=== PATIENT | female | born 1950 | race Caucasian/White ===

== ENCOUNTER 2017-02-09 10:08 | Observation (INO) | payer OTHER ==
[2017-02-09] VITALS (11 sets, daily range): BP systolic 117–141; BP diastolic 59–81; PULSE 59–74; RESP 11–20; O2SAT 96–99
[~2017-02-09] VITALS: Ht 172.7 cm; Wt 82.1 kg
--- NOTE | 2017-02-09 10:06 | ED.REPORT ---
HPI-Neurologic Deficit Date of Service Feb 09, 2017 ED Provider: Dr. Yury Duarte MD A 66 year old female with a history of recent ischemic colitis (2 weeks ago), hypertension, and ADD presents to the ED via EMS following a syncopal episode with stoke like symptoms that occurred at 0940 this morning. The patient presented after a 5 minute episode of unresponsiveness followed by significant slurred speech and inability to ambulate. The patient reported generalized weakness and dizziness just prior to symptom onset. She had been sitting for approx. 40 minutes prior to symptom onset. EMS endorse slurred speech in the field that is gradually improving upon arrival to the ED. Last known normal was approx. 2 hours prior to arrival. Code stroke was initiated prior to arrival in the ED. The patient has had resolving diarrhea and hematochezia for the past two weeks since her colitis diagnosis. Her reports that the patient had a similar syncopal episode 2 weeks ago following her colitis Current medication list includes Adderall, Lisinopril, Citalopram and recent antibiotics. Nursing Notes Stated Complaint: CODE STROKE Nursing Notes Reviewed: Yes Allergies: Coded Allergies: No Known Allergies (Unverified , 02/09/17) General Time Seen by Provider: 10:06 Chief Complaint Slurred speech Hx Obtained From: Patient, Spouse, EMS Arrived By: Ambulance Sudden in Onset?: Yes Onset Occurred: Just prior to arrival Symptom Duration: Since onset Progression Since Onset: Unchanged Associated with: Reports: Diarrhea, Nausea, Weakness Pertinent Negative: Pt denies other symptoms Recent Healthcare: Recent doctor visit, Recent hospitalization Risk Factors TPA Administration/Criteria Stroke Thrombolytic Therapy : TPA Administered Intravenously: No, exclusion criteria (Recent ischemic colitis and GI bleed and rapidly resolving symptoms) NIH Stroke Scale Level of Consciousness: Alert and responsive (0) Ask Month & Age: Both questions right (0) Open/Close Eyes/Hand Waist Pleater: Performs both tasks (0) Horizontal EO Movements: None (0) Visual Taylor: No visual loss (0) Facial Palsy: Normal symmetry (0) Right Arm Motor Drift (10s): No drift 10 sec (0) Left Arm Motor Drift (10s): No drift 10 sec (0) Right Leg Motor Drift (5s): No drift 5 sec (0) Left Leg Motor Drift (5s): No drift 5 sec (0) Limb Ataxia FNF/Heel-Zarate: No ataxia (0) Sensation (Arms/Legs/Face): No sensory loss (0) Language Aphasia: No aphasia, normal (0) Dysarthria: No dysarthria, normal (0) Extinction/Inattention: No exctinct/inattent (0) NIHSS Score: 0 Time NIHSS Performed: 10:21 Past Medical History Past Medical History Ischemic colitis ADD Hypertension Past Surgical History Hysterectomy Cataract surgery Smoking History Unknown if Ever Smoker Social History Other Social History: Good social support, , Local resident Ambulatory Status Independent Review of Systems GI: Reports: Diarrhea, Hematochezia (Improving), Denies: Bloody/tarry stool Neurologic: Reports: Change LOC, Dizziness, Problem walking, Slurred speech, Syncope Complete sys rev & neg: except as marked. Physical Exam Initial Vital Signs Vital Signs (First) Date Time Temp Pulse Resp B/P Pulse Ox O2 Delivery O2 Flow Rate FiO2 02/09/17 10:08 74 20 117/62 98 Room Air 02/09/17 11:41 36.5 BP:90/70 HR: 88 Initial VS: Reviewed Neck: Supple, Non-tender, Full range of motion Extremities: Vascular intact, Neuro intact, No swelling, No tenderness Skin: Warm, Dry, No cyanosis Psychiatric: Mood/affect normal, Behavior normal, Normal thought content General/Constitutional: Awake, Alert Head / Eyes: Atraumatic, Normocephalic, PERRL Respiratory / Chest: Atraumatic, Breath sounds NL, Breath sounds = bilat, No respiratory distress Cardiovascular: Heart rate NL, Regular rhythm, Heart sounds NL Neurologic: Oriented X3 See NIH Stroke Scale in Risk Abdomen: Atraumatic, Soft Interpretation & Diagnostics Lab Results Interpretation Result Diagram: 02/09/17 1005 02/09/17 1005 Test 02/09/17 10:05 White Blood Count 9.1th/mm3 (3.8-10.1) Red Blood Count 4.57mil/mm3 (3.90-5.20) Hemoglobin 13.7g/dL (12.0-15.6) Hematocrit 40.7% (35.0-46.0) Mean Corpuscular Volume 89.1fL (81-100) Mean Corpuscular Hemoglobin 30.0pg (27.0-35.0) Mean Corpuscular Hemoglobin Concent 33.7% (32.0-37.0) Red Cell Distribution Width 14.2% (12.3-15.4) Platelet Count 401bil/L (150-400) Neutrophils (%) (Auto) 67.2% (40-74) Lymphocytes (%) (Auto) 25.3% (14-46) Monocytes (%) (Auto) 5.8% (4-12) Eosinophils (%) (Auto) 1.1% (0-5) Basophils (%) (Auto) 0.4% (0-3) Prothrombin Time 10.8sec (8.1-12.5) Prothromb Time International Ratio 1.01ratio Activated Partial Thromboplast Time 23.6sec (22.8-33.0) Sodium Level 140mEq/L (134-144) Potassium Level 3.9mEq/L (3.5-5.2) Chloride Level 103mEq/L (97-108) Carbon Dioxide Level 20mmol/L (18-29) Blood Urea Nitrogen 12mg/dL (8-27) Creatinine 1.01mg/dL (0.57-1.00) Estimat Glomerular Filtration Rate 79mL/min (>59) Glucose Level 133mg/dL (60-99) Calcium Level 9.5mg/dL (8.5-10.1) Total Bilirubin 0.2mg/dL (0.0-1.2) Aspartate Amino Transf (AST/SGOT) 19U/L (0-50) Alanine Aminotransferase (ALT/SGPT) 18U/L (0-32) Alkaline Phosphatase 82U/L (25-165) Troponin T < 0.010ug/L (0.0-0.011) Total Protein 7.1g/dL (6.4-8.4) Albumin 4.0g/dL (3.4-5.0) ECG Interpretation ECG Interpretation: Sinus rhythm Rate 64 bpm probable left atrial enlargement probably left ventrixcular hypettrophy Time: 10:40 Interpreted by: ED physician X-Ray Chest Interpretation Chest Xray Interpretation: IMPRESSION: No acute cardiopulmonary disease. Dictated by: Musa Beatty M.D. on 02/09/2017 at 10:50 Interpretation / Wet Read by: Interpret - Radiologist CT Head Interpretation IMPRESSION: No acute intracranial abnormalities. Findings were discussed with Dr. Aguilar at 1029 hrs on February 09, 2017. This study fulfills neurological imaging criteria for inclusion or exclusion of acute stroke therapies based on available published neurological imaging guidelines. Dictated by: Musa Beatty M.D. on 02/09/2017 at 10:29 Study: Head CT no contrast Interpretation / Wet Read by: Interpret - Radiologist, Discussed w radiologist Re-Eval/Medical Decision Med Decision/Clinical Course Patient care was initiated prior to arrival as emergency medical personnel notified us of a high risk patient coming in with possible stroke. Based on last known normal the patient was a potential TPA candidate, however given her recent GI bleeding, rapidly resolving symptoms, and an NIH stroke scale of 0, TPA was not given. We will plan to admit the patient for further diagnostic evaluation. Re-Evaluation/Progress #1: Time of Eval: 10:28 Re-Evaluation/Progress Note: Speech is improving upon recheck. Re-Evaluation/Progress #2: Time of Eval: 11:24 Patient Status: Condition improved Re-Evaluation/Progress Note: Orthostatic vitals are negative. Symptoms continue to improve. She is informed of the plan to give Aspirin and admit to the hospital for further work-up. Re-Evaluation/Progress #3: Time of Eval: 11:36 Patient Status: Condition improved Re-Evaluation/Progress Note: Code status is discussed in front of the patient's . Requested status is undecided at this time. All of the patient's questions about her likely diagnosis and disposition are addressed. She understands and agrees with the plan. Consultation : Referral / Consult Name: Tobin Vela MD Consulted With: Hospitalist Call Returned at: 12:11 Barber Tool Sharpener: Will see patient, Agrees with eval, Agrees with plan, Accepts admit Differential Diagnosis: Positive: Cerebrovascular accident, Electrolyte disorder, Epidural hemorrhage, Hypoglycemia, Intracranial hemorrhage, Mass lesion, Personality disorder, Subarachnoid hemorrhage, Subdural hemorrhage, Transient ischemic attack Counseled Regarding: Diagnosis, Lab results, Need for admission Discharge & Departure Impression: Primary Impression: Syncope Syncope type: unspecified Qualified Code: R55 - Syncope and collapse Additional Impression: Transient ischemic attack (TIA) Transient cerebral ischemia type: unspecified Qualified Code: G45.9 - Transient cerebral ischemic attack, unspecified Disposition: ADMITTED TO HOSPITAL Discharge Condition All VS Reviewed: Yes Condition: Improved Crit Care Except Billable Proc Time Spent: 30-74 minutes Services Performed: Patient management by me, Time spent at bedside, Reviewing test results, Reviewing imaging, Discussing patient care, Documentation in record, Time with fam/surrogate Critical Care Notes: See MDM Scribe Attestation Portions of this note were transcribed by Mehdi Guadalupe. I, Dr. Yury Duarte personally performed the history, physical exam and medical decision- making; I reviewed and confirmed the accuracy of the information in the transcribed note. Yury Aguilar DO Feb 09, 2017 10:05 MEHDI GUADALUPE Feb 09, 2017 10:16
[2017-02-09] MEDS ORDERED: 0.9% Sodium Chloride 1,000 ML IV ONE (10:11)
[2017-02-09 10:30] LABS: BASOPHILS % (AUTO) 0.4 % (0-3); EOSINOPHILS % (AUTO) 1.1 % (0-5); MONOCYTES % (AUTO) 5.8 % (4-12); Mean Corpuscular Volume 89.1 fL (81-100); NEUTROPHILS % (AUTO) 67.2 % (40-74); Platelet Count 401 bil/L (150-400)
--- NOTE | 2017-02-09 10:32 | DRSVH ---
PROCEDURE: CT BRAIN TPA INDICATIONS: 66 year-old female with stroke symptoms. TECHNIQUE: Noncontrast 4.5 mm thick angled axial sections acquired from the foramen magnum to the vertex, with c oronal reformats. COMPARISON: None. FINDINGS: Image quality: Excellent. CSF spaces: Basal cisterns are patent. No extra-axial fluid collections. Ventricles are normal in size and shape. Brain: No midline shift. No intracranial masses or hemorrhage. Concepcion-white matter interface is norm al. There is patchy intracranial internal carotid artery atherosclerosis. Skull and face: Calvarium and visualized facial bones are intact, without suspicious lesions. Sinuses: Visualized sinuses and mastoids are clear. IMPRESSION: No acute intracranial abnormalities. Findings were discussed with Dr. Aguilar at 1029 hrs on February 09, 2017. This study fulfills neurological imaging criteria for inclusion or exclusion of acute stroke therapie s based on available published neurological imaging guidelines. Dictated by: Musa Beatty M.D. on 02/09/2017 at 10:29 Approved by: Musa Beatty M.D. on 02/09/2017 at 10:31
[2017-02-09 10:48] LABS: INR 1.01 ratio
--- NOTE | 2017-02-09 10:52 | DRSVH ---
PROCEDURE: X-RAY CHEST ONE VIEW, PORTABLE ([id number]) INDICATIONS: 66 year-old female with syncope versus stroke. TECHNIQUE: One view of the chest was acquired. COMPARISON: None. FINDINGS: Surgical changes and devices: None. Lungs and pleura: No pleural effusions or pneumothorax. Lungs are clear. Mediastinum: Mediastinal contours appear normal. Heart size is normal. Bones and chest wall: No suspicious bony lesions. Overlying soft tissues appear unremarkable. IMPRESSION: No acute cardiopulmonary disease. Dictated by: Musa Beatty M.D. on 02/09/2017 at 10:50 Approved by: Musa Beatty M.D. on 02/09/2017 at 10:50
[2017-02-09 11:11] LABS: TROPONIN T < 0.010 ug/L (0.0-0.011)
[2017-02-09] MEDS ORDERED: Alum-Mag Hydrox-Simeth 30 mL Suspension PO PRN ×2 (12:15→12:30)
[2017-02-09] MEDS ORDERED: Ondansetron 2 mg/mL 2 mL Inj IVPUSH PRN ×2 (12:15→12:30)
[2017-02-09] MEDS ORDERED: Labetalol 5 mg/mL 20 mL Inj IVPUSH PRN (12:30)
[2017-02-09] MEDS ORDERED: Polyethylene Glycol (PEG) 17 Gm Powder PO PRN (12:30)
--- NOTE | 2017-02-09 13:16 | NUR ---
Admit Patient arrived to floor approx 1230 with spouse at bedside. Oriented to room and hospital policies. Tele placed. Patient will be a SBA due to weakness with ambulation. Does not use devices with ambulation prior to admit. Patient stutters frequently during conversation which is not baseline. feels speech is worsening which this RN agrees with. notified and at bedside. MRI ordered stat. Denies weakness in extremities. Sensation intact in all extremities, no facial drooping or tongue deviation. Continue frequent monitoring. Addendum: 02/09/17 at 1323 by BJ HOPSON RN Med rec not completed. Spouse knows medications yet does not know doses. Fax sent to [facility] requesting med list.
--- NOTE | 2017-02-09 13:36 | NUR ---
stutter pt's stutter has significantly gotten worse since being on [facility]. STAT MRI and CT have been ordered. pt stable otherwise.
--- NOTE | 2017-02-09 14:05 | NUR ---
off floor pt is off the unit for a STAT MRI.
--- NOTE | 2017-02-09 14:32 | PCM.HPMED ---
Subjective Date of Service Feb 09, 2017 Primary Provider: Admitting Physician: Primary Care Physician: Attending Physician: Chief Complaint: Syncope and altered speech patterns History of Present Illness: Ms. Angeline Arzate is a 66 year old lady with a history of recent ischemic colitis ( 2 weeks ago), hypertension, and ADD, and depression who presents to the ED via EMS following a syncopal episode with stoke like symptoms that occurred at 0940 this morning. Angeline reports feeling lightheaded just before her syncopal episode but doesn't recall anything until arriving to the ED. Her reports patient slouched over in the methodist pew, was cold and clammy and unresponsive for several minutes. She also had an episode of large volume watery diarrhea. After regaining consciousness her and EMS reports generalized weakness and marked aphasia (broca's), that resolved en-route. She reports lightheadedness and "feeling funny", and watery diarrhea. She denies headache, vision change, Aura prior to syncope, fever, chills, nausea, vomiting , chest pain, shortness of breath, abdominal pain, constipation, hematochezia, hematuria, dysuria, limb weakness/numbness/tingling. Of note: This is the 2nd syncopal episode in 2 weeks. The first occurred while on the toilet and was told is was a vagal syncope. She has a 2 week history of diarrhea. It began as syncope and hematochezia 2 weeks ago. She was worked up in a hospital in [place], with a negative CT abdomen and resolution of syncope she was sent home (awaiting hospital records). She had a colonoscopy in [place] 1 week ago and was diagnosed ischemic colitis. She reports continued bouts of watery diarrhea daily. During the interview patient displayed worsening Broca's aphasia. Current medication list includes Adderall, Lisinopril, Citalopram and 2 recent antibiotics. Social: Patient has good social support. No ambulatory dysfunction. DNR/DNI. In the ED patients vitals were: T 36.5. HR - 66, RR - 12, BP - 122/64, 98 % RA. Labs within normal limits. EKG reviewed - NSR 64BPM, No st depressions/elevations, Non specific t wave inversions. CT head - No acute intracranial abnormalities. In the ED patient received Aspirin, and 1 L NS. TPA not indicated due to recent ischemic colitis, NIH 0 to 1. MR stroke protocol ordered. Echo complete ordered. Dr. Lim with neurology consulted. Review of Systems: A comprehensive review of systems was conducted with the patient and found to be negative except as above in the History of Present Illness. Allergies Coded Allergies: No Known Allergies (Unverified , 02/09/17) Home Medications Lisinopril Citalopram Adderall 2 antibiotics... Tylenol PMH Ischemic colitis ADD Hypertension Surgical History Hysterectomy Cataract surgery Family History Father CHF mother healthy Son Colon cancer. Social History Hx Alcohol Use: No Hx Substance Use: No Hx Tobacco Use: No Smoking Status: Never Smoker Living Arrangement: with Family Exam Vital Signs Vital Sign - Last Date Time Temp Pulse Resp B/P Pulse Ox O2 Delivery O2 Flow Rate FiO2 02/09/17 11:41 36.5 65 12 118/77 99 Room Air Exam General: Late middle aged lady lying in bed in no acute distress, well-developed , well-nourished, appropriately interactive HEENT: Normocephalic, atraumatic. External ears without defect. Pupils equal, round, and reactive to light and accommodation. Anicteric sclerae, moist conjunctivae, and no lid lag. Oropharynx free of erythema and cobble stoning with moist mucosa. Neck: Supple with full range of motion. No jugular venous distension. No bruits. No lymphadenopathy or thyromegaly. Cardiovascular: Regular rate and rhythm with no murmurs, rubs, or gallops appreciated Pulmonary: Clear to auscultation bilaterally with no crackles, wheezes, or rhonchi. Normal respiratory effort with no use of accessory muscles. Abdomen: Bowel tones present. Soft, nontender, nondistended. No hepatosplenomegaly or masses appreciated. Extremities: No clubbing, cyanosis, edema, or lymphadenopathy appreciated. Skin: Normal temperature, turgor, and texture; no rash, ulcers, or subcutaneous nodules appreciated. Neurological: Cranial nerves grossly intact. Normal muscle strength, tone, and bulk. Reflexes, coordination, and sensory function within normal limits. No known gait impairment. Patient displayed marked Broca's aphasia nearly every other word. This is a change from arrival to ED. Psychiatric: Normal mood and affect. Alert and oriented to person, place, and time. Lab and Diagnostics Result Diagram: 02/09/17 1005 02/09/17 1005 X-Rays, CTs and MRIs CT BRAIN TPA IMPRESSION: No acute intracranial abnormalities. Findings were discussed with Dr. Aguilar at 1029 hrs on February 09, 2017. This study fulfills neurological imaging criteria for inclusion or exclusion of acute stroke therapies based on available published neurological imaging guidelines. Approved by: Musa Beatty M.D. on 02/09/2017 at 10:31 12-lead ECG EKG reviewed - NSR at 64 BPM, normal axis, no ST elevations/depressions, T wave inversions in Leads V1, V2 Assessment & Plan Ms. Angeline Arzate is a 66 year old lady with a history of recent ischemic colitis and syncope (both 2 weeks ago), hypertension, and ADD, and depression who presents to the ED via EMS following a syncopal episode with stoke like symptoms that occurred at 0940 this morning. She has worsening Broca's aphasia. Stroke protocol ordered, and Neurology consulted. Acute CVA, likely TIA , Present on Admission, Active. TPA not indicated due to recent ischemic colitis, NIH 0 to 1. - Received Statin and ASA in the ED. Will continue. - NIH in ED was 0 to 1. - Lipid panel/HA1c ordered. - PT/Speech eval ordered. - EKG reviewed - wnl - CT head - No acute intracranial abnormalities. - Stat MR stroke protocol ordered. - Echo complete ordered. - Dr. Lim with neurology consulted. - Standard Stroke protocol ordered. Acute Syncopal Episode, Present on Admission, Stable. - EKG reviewed - NSR at 64 bpm, no arrhythmia seen, no ST changes. - Labs all normal. - On Tele. - ECHO ordered. (no prior study available) - Orthostatics blood pressures. - IV fluids NS @ 75 ml/hr. - Awaiting outpatient records from PCP and previous hospital stay in . Recent history of Ischemic colitis, watery diarrhea, present on admission. Active. - Continue IV fluids. - Awaiting recent inpatient records. - Stool guaiac ordered. - C. diff pcr ordered. - If continues will CT abdomen mesenteric angiogram. Chronic Conditions: Hypertension - Holding home Lisinopril till appropriate. Depression - Continue home Citalopram ADD - Continue home Adderall Social: Patient has good social support. No ambulatory dysfunction. DNR/DNI. In the ED patient received Aspirin. Acetaminophen for mild pain when necessary. Bowel regimen Senna and MiraLAX scheduled and PRN. Zofran when necessary for nausea and vomiting. SubQ heparin for now. SCDs in place. High-risk medications: NONE. Patient Status: Patient is admitted under observation status with expected length of stay less than 2 midnights due to severity of presenting symptoms. Pain Evaluation: Adequate Pain Control VTE Prophylaxis: Sub-Q Heparin (Unfractionated) Resuscitation Status: DNR/DNI:Do Not Resuscitate/Intubate Stoke tPA Contraindication tPA arrival Contraindications: Medical contraindication Attending Statement Patient seen and examined with resident. Agree with the management as outlined above. LIDYA MOCK DO Feb 09, 2017 12:34 Tobin Vela MD Feb 09, 2017 22:04
[2017-02-09] MEDS: 0.9% Sodium Chloride 1,000 ML IV SCH (14:52)
--- NOTE | 2017-02-09 15:10 | DRSVH ---
PROCEDURE: MRI STROKE PROTOCOL ([id number]) Pre- and post-contrast brain MRI, non-contrast brain MR angiogram, pre- and postcontrast neck MR alley ogram INDICATIONS: CVA, slurred speech. TECHNIQUE: Brain: Noncontrast axial T1 spin echo, axial T2 fast spin echo, sagittal and axial FLAIR, coronal T2 fast spin echo, axial gradient echo, axial diffusion and ADC through the brain. After the administr ation of contrast, axial 3D VIBE of the cranial vasculature and brain. Brain MRA: Non-contrast 3-D time of flight MR angiogram, with multiple nmafnzi-qdivugycu-rxeerhqrnr (MIP) reformats performed. Neck MRA: Axial and sagittal TruFISP through the neck. Coronal dynamic MR angiogram during administ ration of contrast in the arterial and venous phases, with 3-dimenstional yvaqsko-ajscgmqju-ovbgrlgvz n (MIP) reformats constructed from subtraction images. COMPARISON: [facility], CT, CT BRAIN TPA, 02/09/2017, 10:22. FINDINGS: Image quality: Excellent. BRAIN: CSF spaces: There is mild cerebral volume loss with prominence of the ventricles and sulci. Basal ci sterns are patent. No extra-axial fluid collections. Brain: Diffusion-weighted images demonstrate no acute infarcts. No intracranial hemorrhage, mass, o r mass effect. Concepcion-white matter interface is preserved. There are subcortical and periventricular foci of white matter T2 hyperintensity consistent with mild chronic small vessel ischemic changes. B rainstem appears normal. Normal intravascular flow voids are present. No abnormal intracranial enha ncement. Skull and face: Calvarial marrow signal is normal. Orbits appear normal. Sinuses: Sinuses and mastoids are clear. BRAIN MR ANGIOGRAM: Anterior circulation: Intracranial internal carotid arteries are patent bilaterally. The flow withi n the paired anterior cerebral arteries is patent bilaterally. The flow within the middle cerebral a rteries is patent bilaterally. The anterior communicating artery is visualized. No high-grade steno ses, occlusions, or aneurysms. Posterior circulation: The visualized portions of the vertebral arteries appear patent and join to f orm a patent basilar artery. There is a diminutive distal segment of the left vertebral artery which may represent an anatomic variant or high grade segmental stenosis. The flow within the posterior c erebral arteries is patent bilaterally. No occlusions or aneurysms. NECK MR ANGIOGRAM: Carotids: Great vessels demonstrate conventional anatomy as they arise from the aortic arch. The or igins of the common carotid arteries appear patent. The calibers and courses of both common carotid arteries are normal. The bifurcation regions appear widely patent. The internal carotid arteries de monstrate normal course and caliber. Posterior circulation: The origins of the vertebral arteries appear patent. More superior portions of both vertebral arteries are patent and join to form a normal appearing basilar artery. There is a diminutive appearance of the distal segment of the left vertebral artery. Miscellaneous: Subclavian arteries appear patent. Pre-contrast images through the neck show no soft tissue abnormalities. IMPRESSION: BRAIN MRI: 1. No evidence of infarct or other acute intracranial abnormality. 2. Mild cerebral volume loss and chronic white matter small vessel ischemic changes. BRAIN MR ANGIOGRAM: 1. No high-grade stenosis or occlusion of the [place] vessels. 2. Diminutive appearance of the distal left vertebral artery which likely represents an anatomic henri iant due to a dominant right vertebrobasilar system versus segmental stenosis. NECK MR ANGIOGRAM: 1. Carotid bulbs are widely patent. No high-grade stenosis or occlusion of the anterior circulation . 2. Diminutive distal segment of the left vertebral artery likely represents an anatomic variant seco ndary to a dominant right vertebrobasilar system. However, a segmental stenosis cannot be fully excl uded and if clinically indicated further evaluation may be obtained with CT angiogram. The estimate of stenosis included in the report of the imaging study was calculated using the NASCET method Dictated by: Bam Pimentel M.D. on 02/09/2017 at 15:09 Approved by: Bam Pimentel M.D. on 02/09/2017 at 15:09
--- NOTE | 2017-02-09 16:42 | NUR ---
feeling normal pt states that she feels "normal" again and also points out that her stuttering was gone. pt and suspect the combination of the ischemic colitis and lower BP caused the current situation.
[2017-02-09] MEDS: Heparin 5,000 Unit/mL Inj SUBQ SCH (17:08)
[2017-02-10] VITALS (10 sets, daily range): BP systolic 118–164; BP diastolic 69–84; PULSE 56–80; RESP 18; O2SAT 94–98
[2017-02-10] MEDS: Heparin 5,000 Unit/mL Inj SUBQ SCH ×3 (00:50→16:53)
--- NOTE | 2017-02-10 01:18 | NUR ---
Code Status: This RN questioned patients code status of DNR/I, pt told RN that when she arrived to the ED and was having difficulty in speaking, she told the MD she did not want CPR, stating she did not ever want to be spoon fed and/or unable to speak. Now that her speech has improved, she would like to be full code. RN talked to patient about appointing someone to make her decisions if she were ever not able to make them herself and to make out a living will. Patient stated she would speak to her 2nd son about becoming her medical power of banking attorney. This RN to notify MD of patients wish to change code status.
--- NOTE | 2017-02-10 01:31 | PCM.PNMED ---
Subjective Date of Service Feb 10, 2017 Subjective Patient expressed wish to be FULL CODE Tiburcio Herrmann MD Feb 10, 2017 01:31
[2017-02-10] MEDS: 0.9% Sodium Chloride 1,000 ML IV SCH ×2 (04:29→16:13)
[2017-02-10 05:41] LABS: BASOPHILS % (AUTO) 0.4 % (0-3); EOSINOPHILS % (AUTO) 1.6 % (0-5); MONOCYTES % (AUTO) 6.6 % (4-12); Mean Corpuscular Hemoglobin 29.7 pg (27.0-35.0); Mean Corpuscular Volume 89.9 fL (81-100); NEUTROPHILS % (AUTO) 63.6 % (40-74); Platelet Count 307 bil/L (150-400)
[2017-02-10 06:07] LABS: ERYTHROCYTE SEDIMENTATION RATE 22 mm/hr (0-40)
--- NOTE | 2017-02-10 06:22 | NUR ---
Stutter/NOC Shift: During initial assessment, this RN spent about 40 minutes with pt, during this time, pt had three mild episodes of stuttering her words. Pt AOx3 during this time and aware of what she was doing. Pt denied any other neuro symptoms, denied pain, chest pain and SOB. Pt slept off/on throughout the night, pleasant and cooperative with care.
[2017-02-10] MEDS ORDERED: HYDR12.5 PO (07:56)
[2017-02-10] MEDS ORDERED: AMPH30CA PO (07:56)
[2017-02-10] MEDS ORDERED: LISI10TA PO (07:56)
[2017-02-10] MEDS ORDERED: ESCI20TA38 PO (07:56)
[2017-02-10] MEDS ORDERED: METR500T19 PO (09:04)
[2017-02-10] MEDS ORDERED: CIPR-198 PO (09:04)
--- NOTE | 2017-02-10 09:07 | PCM.PNMED ---
Subjective Date of Service Feb 10, 2017 Subjective Patient said her speech is better, however still stutters. No weakness. Vitals stable. Exam Vital Signs Vital Sign - Last Date Time Temp Pulse Resp B/P Pulse Ox O2 Delivery O2 Flow Rate FiO2 02/10/17 08:51 61 02/10/17 04:57 138/81 02/10/17 04:55 36.5 18 95 Room Air Intake and Output 02/09/17 02/09/17 02/10/17 Cumulative From/Thru 15:00 23:00 07:00 02/09/17 10:08 - 02/10/17 06:41 Intake Total 1000 ml 322 ml 1111 ml 2433 ml Output Total 1075 ml 1075 ml Balance 1000 ml 322 ml 36 ml 1358 ml Intake Oral 250 ml 250 ml IV Total 1000 ml 322 ml 861 ml 2183 ml Output Urine Total 1075 ml 1075 ml Exam General: Late middle aged lady lying in bed in no acute distress, well-developed , well-nourished, appropriately interactive HEENT: Normocephalic, atraumatic. External ears without defect. Pupils equal, round, and reactive to light and accommodation. Anicteric sclerae, moist conjunctivae, and no lid lag. Oropharynx free of erythema and cobble stoning with moist mucosa. Neck: Supple with full range of motion. No jugular venous distension. No bruits. No lymphadenopathy or thyromegaly. Cardiovascular: Regular rate and rhythm with no murmurs, rubs, or gallops appreciated Pulmonary: Clear to auscultation bilaterally with no crackles, wheezes, or rhonchi. Normal respiratory effort with no use of accessory muscles. Abdomen: Bowel tones present. Soft, nontender, nondistended. No hepatosplenomegaly or masses appreciated. Extremities: No clubbing, cyanosis, edema, or lymphadenopathy appreciated. Skin: Normal temperature, turgor, and texture; no rash, ulcers, or subcutaneous nodules appreciated. Neurological: Cranial nerves grossly intact. Normal muscle strength, tone, and bulk. Reflexes, coordination, and sensory function within normal limits. No known gait impairment. Patient displayed marked Broca's aphasia nearly every other word. This is a change from arrival to ED. Psychiatric: Normal mood and affect. Alert and oriented to person, place, and time. Lab and Diagnostics Result Diagram: 02/10/1751602/10/17 0517 X-Rays, CTs and MRIs CT BRAIN TPA IMPRESSION: No acute intracranial abnormalities. Findings were discussed with Dr. Aguilar at 1029 hrs on February 09, 2017. This study fulfills neurological imaging criteria for inclusion or exclusion of acute stroke therapies based on available published neurological imaging guidelines. Approved by: Musa Beatty M.D. on 02/09/2017 at 10:31 12-lead ECG EKG reviewed - NSR at 64 BPM, normal axis, no ST elevations/depressions, T wave inversions in Leads V1, V2 Assessment & Plan Ms. Angeline Arzate is a 66 year old lady with a history of recent ischemic colitis and syncope (both 2 weeks ago), hypertension, and ADD, and depression who presents to the ED via EMS following a syncopal episode with stoke like symptoms that occurred at 0940 this morning. She has worsening Broca's aphasia. Stroke protocol ordered, and Neurology consulted. Aphasia (broca's) , Present on Admission, Resolving - TPA not indicated due to recent ischemic colitis, NIH 0 to 1. - other differentials include focal seizure - NIH in ED was 0 to 1. - CT, MRI, MRA without any acute pathologies - Lipid panel normal - PT/Speech eval ordered. - EKG reviewed - wnl - CT head - No acute intracranial abnormalities. - Echo complete ordered. - EEG ordered, will get b12, folate levels - Dr. Lim with neurology consulted. - Standard Stroke protocol ordered. Acute Syncopal Episode, Present on Admission, Stable. - EKG reviewed - NSR at 64 bpm, no arrhythmia seen, no ST changes. - Labs all normal. - On Tele. - ECHO ordered. (no prior study available) - Orthostatics blood pressures. - IV fluids NS @ 75 ml/hr. - Awaiting outpatient records from PCP and previous hospital stay in . Recent history of Ischemic colitis, watery diarrhea, present on admission. Resolving - Continue IV fluids. - no abdominal pain - monitor Chronic Conditions: Hypertension - restart home meds Depression - Continue home Citalopram ADD - Continue home Adderall Social: Patient has good social support. No ambulatory dysfunction. DNR/DNI. In the ED patient received Aspirin. Acetaminophen for mild pain when necessary. Bowel regimen Senna and MiraLAX scheduled and PRN. Zofran when necessary for nausea and vomiting. SubQ heparin for now. SCDs in place. High-risk medications: NONE. Patient Status: Patient is admitted under observation status with expected length of stay less than 2 midnights due to severity of presenting symptoms. VTE Prophylaxis: Sub-Q Heparin (Unfractionated) VTE Mechanical Devices: Venous Foot Pump Resuscitation Status: DNR/DNI:Do Not Resuscitate/Intubate Time spent 35 mins Tobin Vela MD Feb 10, 2017 09:06
--- NOTE | 2017-02-10 10:44 | DRSVH ---
[facility] [address] [place] [address] Echocardiogram Report Name: BEL ISIDRO Study Date: 02/10/2017 Height: 68 in Hospital Exam Location: [facility] Weight: 180 lb Gender: Female BSA: 2.0 m2 : 1950 Age: 66 yrs BP: 138/81 mmHg Reason For Study: SYNCOPE Ordering Physician: Performed By: Katey Armstrong Referring Physician: LIDYA MOCK Interpretation Summary The left ventricular ejection fraction is normal. There is no significant valvular heart disease. Procedure: A two-dimensional transthoracic echocardiogram with color flow and Doppler was performed. The study quality was technically adequate. There is no prior echocardiogram noted for this patient. The patient was in normal sinus rhythm during the exam. Left Ventricle: The left ventricle is normal in size, wall thickness, and systolic function without any focal wall motion abnormalities. The left ventricular ejection fraction is normal. The ejection fraction is estimated to be 60-65%. There are no focal wall motion abnormalities. Assessment of diastolic parameters indicates normal left ventricular diastolic function and normal filling pressures. Right Ventricle: The right ventricle is normal in size, thickness and function. Atria: The left atrium is moderately dilated. Right atrial size is normal. There is no Doppler evidence for an interatrial shunt. Mitral Valve: The mitral valve leaflets appear borderline thickened, but open well. The mitral valve leaflets appear to open well. There is trace mitral regurgitation. Aortic Valve: The aortic valve is not well visualized. The aortic valve is trileaflet. The aortic valve opens well. No aortic regurgitation is present. Tricuspid Valve: The tricuspid valve is normal. There is trace tricuspid regurgitation. The right ventricular systolic pressure is estimated at least 21 mmHg assuming a right atrial pressure of 3 mm Hg. Pulmonic Valve: The pulmonic valve leaflets are thin and pliable; valve motion is normal. There is mild pulmonic regurgitation. Great Vessels: The aortic root is normal size. The ascending aorta is mildly enlarged. The aortic arch is normal in size. The pulmonary artery is not well visualized, but is probably normal size. The IVC is of normal diameter and collapses greater than 50% with a sniff. This suggests a low right atrial pressure of 3 mm Hg. Pericardium/ Pleura There is no pericardial effusion. There is no pleural effusion. MMode/2D Measurements & Calculations LVIDd: 4.2 cm RA long axis LVOT diam: 2.1 cm LVIDs: 2.5 cm LA A2 area: 23.5 cm Ao root diam FS: 40.9 % LA A4 area: 25.1 cm RA area EPSS: 0.35 cm LA length (vol) asc Aorta Diam IVSd: 0.92 cm : 15.6 cm LVPWd: 0.95 cm LA vol: 83.5 ml RA vol Ao Arch Diam (Prox LA vol index : 43.2 ml Trans): 2.9 cm RA : 22.1 mm2 IVC diam: 1.9 cm LV monterroso. diameter/BSA LV sys. diameter/BSA RVD1 (basal) RVD2 (mid): 2.5 cm (cm/m^2): 2.2 (cm/m^2): 1.3 TAPSE: 2.7 cm Doppler Measurements & Calculations Ao V2 max MV E max klaus MV E/A: 1.3 TR max klaus : 136.9 cm/sec : 82.6 cm/sec Med Peak E' Klaus : 214.2 cm/sec Ao max PG MV A max klaus TR max PG : 7.5 mmHg : 63.8 cm/sec E/E' med: 9.2 : 18.3 mmHg Ao mean PG MV P1/2t: 61.9 msec Lat Peak E' Klaus PA V2 max : 77.3 cm/sec LVOT Max Klaus E/E' lat: 7.5 PA mean PG : 116.2 cm/sec E/e' average: 8.4 PA Accel Time CHAD(I,D): 3.4 cm : 0.14 sec sev ratio MV dec time MV P1/2t max klaus Ao V2 mean LV V1 max PG : 0.21 sec : 90.8 cm/sec MVA(P1/2t): 3.6 cm2 Ao V2 VTI: 31.1 cm LV V1 VTI CHAD(V,D): 3.0 cm2 : 29.8 cm PA V2 mean CHAD indexed to BSA : 50.5 cm/sec (cm^2/m^2): 1.7 Electronically signed by: Meliton Hogan on Reading Physician:02/10/2017 10:43 AM
--- NOTE | 2017-02-10 11:54 | NUR ---
Evaluation completed. Please go to "Notes" then click on "Assessments and Notes" (bottom left corner of screen). Then select appropriate discipline tab on top of screen.
--- NOTE | 2017-02-10 17:13 | NUR ---
Social Work-attempted initial assessment: Data:EMR Reviewed. Pt is a 66 y/o female who was admitted on 02/09/17 for syncope per H&P. Pt's insurance is [employer] and PCP is Other. EMR Reviewed. Pt's readmission score is 1. SW attempted to see pt today to complete assessment, but pt have EEG at beside. SW to follow up with assessment tomorrow. SW will continue to follow. Assessment:pt who is independent at baseline. Plan:SW to follow up with pt tomorrow and complete assessment. PT has cleared pt for home no needs. Pt having EEG today. SW will continue to follow. KARO Andersen
--- NOTE | 2017-02-10 20:03 | NUR ---
pain/activity/eeg/work paperwork assumed care of patient at 1500. patient denies pain all shift. up with one person assist and standby in room. eeg completed. patient requests form for work to be filled out per MD. form in chart and note on front of chart for MD to fill out form in the AM. passed this on to noc rn additionally. patient denies dizziness when up. report given to oncoming rn at 1900.
[2017-02-11 00:08] VITALS: BP 118/69; PULSE 61; RESP 18; O2SAT 96
--- NOTE | 2017-02-11 01:17 | CONS ---
[address] [address] CONSULTATION REPORT PATIENT: BEL ISIDRO : 1950 MR#: [id number] ADMIT: 02/09/2017 JOB ID: [id number] DATE OF SERVICE: 02/10/2017 REQUESTING PROVIDER: Bebeto Smith DO. Thank you again Dr. Smith for allowing me to participate in the care of your patient. CHIEF COMPLAINT: Two episodes of loss of consciousness. HISTORY OF PRESENT ILLNESS: The patient is a very pleasant 66-year-old right-handed woman with multiple medical problems, including a recent diagnosis of ischemic colitis two weeks ago, as well as a history of hypertension, attention deficit disorder and depression, who experienced an episode of lightheadedness followed by loss of consciousness with staring which lasted for approximately 5-7 minutes, witnessed by her . She slouched over in the tenriism pew, was cold, clammy and unresponsive. Following this, she felt nauseous and had large volume watery diarrhea. After regaining consciousness, she had generalized weakness and was noted to have stuttering. This resolved en route. She denied any headaches, visual changes or any aura prior to the episode, and no recent symptoms suggestive of any infectious etiology such as fevers, chills, nausea or vomiting. Unfortunately, this was the second episode in two weeks. The first occurred when she was in [place]. At that time, she was told that it was secondary to ischemic colitis and she has noted ever since then that she has had continued bouts of watery diarrhea daily. She was noted on today's examination to have intermittent stuttering that worsened during periods when she appeared to be more anxious. MEDICATIONS: Include: 1. Aspirin 81 mg. 2. Atorvastatin 40 mg. 3. Lexapro 20 mg. 4. Heparin 5000 units subcutaneously q.8 h. 5. Lisinopril 10 mg. 6. Melatonin 10 mg. 7. P.r.n. ondansetron, polyethylene glycol and senna. SOCIAL HISTORY: She lives with her . 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 No tobacco, alcohol, or drugs. REVIEW OF SYSTEMS: A complete review of systems was performed and was remarkable for above-noted. She did not receive tPA due to the recent ischemic colitis. Her NIH Stroke Scale was 0-1. She did receive aspirin in the emergency department and 1 L normal saline ALLERGIES: No known drug allergies. HOME MEDICATIONS: 1. Lisinopril. 2. Citalopram. 3. Adderall. 4. Two antibiotics, the names of which she cannot recall. 5. Tylenol. PAST MEDICAL HISTORY: 1. Ischemic colitis, recently diagnosed. 2. Attention deficit disorder. 3. Hypertension. 4. Depression. PAST SURGICAL HISTORY: 1. Status post hysterectomy. 2. Status post cataract surgery. FAMILY HISTORY: No neurologic disorders. LABORATORIES: When she initially came in, WBC 9.1, hemoglobin 13.7, hematocrit 40.7, and platelets of 401. Sodium 140, potassium 3.9, chloride was 103, bicarb was 20, BUN was 12, creatinine was 1.01, and glucose was 133. IMAGING STUDIES: She had a chest x-ray which demonstrated no acute cardiopulmonary disease. She had a CT of the brain which demonstrated no acute intracranial abnormalities. Then, she had an MRI of the brain which I reviewed in detail. This demonstrated no evidence of infarct or other acute intracranial abnormality. Mild cerebral volume loss and chronic white matter small vessel ischemic changes were noted. No high-grade stenosis or occlusion of hug[place] of Salas vessels was noted. Diminutive appearance of the distal left vertebral artery which likely represents an anatomic variant due to a dominant right vertebral basilar system versus segmental stenosis was noted. In light of this, recommendation was made for a CT angiogram. Carotid bulbs were widely patent with no high-grade stenosis or occlusion of the anterior circulation. PHYSICAL EXAMINATION: Temperature 36.6, pulse of 65, respiratory rate of 18, blood pressure 153/8, pulse oximetry 97% on room air. General: She is a well-developed, well-nourished woman, in no acute distress. Head: Normocephalic, atraumatic. Neck is supple. No carotid bruits were auscultated. Negative Kernig. Negative Brudzinski. Chest: Clear to auscultation. Heart: Regular rate and rhythm. Abdomen: Soft, nondistended, nontender. Extremities: No cyanosis, clubbing, or edema. Neurologic examination: Mental status: She is awake, alert, oriented x3. Speech clear and fluent with intact comprehension. There was intermittent episodes of stuttering noted but no clear speech arrest and no associated neurologic symptoms. No aphasia. Cranial nerves: Pupils equal, round, reactive to light. Extraocular movements were smooth and conjugate with no evidence of nystagmus. Face appeared symmetrical. Facial sensation was intact light touch and temperature. Auditory sensation was intact to finger rub. Palatal elevation was symmetrical. Tongue was midline. Sternocleidomastoid and trapezii are 5/5 bilaterally. Motor: Normal tone and bulk. Muscle strength 5/5 throughout. Sensation intact to light touch and temperature. Deep tendon reflexes were 2+ and symmetrical. Plantars were flexor bilaterally. Coordination: Sbzjyt-qc-hxcq was intact without evidence of dysmetria. Gait was deferred. IMPRESSION: Two episodes suspected to be secondary to vasovagal syncope. My suspicion is that she has had dehydration in both situations as a risk factor, and in the first episode she was subsequently diagnosed with ischemic colitis, and in the second episode I do suspect that she was dehydrated. She does report that she felt cold and clammy after the episode as well, and this is likely also secondary to dehydration. An extensive evaluation has therefore been performed, which has not revealed any evidence suggestive of a cerebrovascular accident or an ictal etiology. I did review the differential diagnosis for her symptoms in detail. Given that she does have an abnormal diminutive appearance to her left vertebral artery, I do recommend obtaining a CT angiogram head and neck to exclude the possibility of stenosis secondary to atherosclerotic plaques as the etiology of the diminutive appearance of the left vertebral artery. I also recommend a cardiac evaluation with a possible Holter monitor for 72 hours to exclude the possibility of a cardiac arrhythmia etiology of two episodes of loss of consciousness. The medications incidentally that she was taking were metronidazole and ciprofloxacin, those are the two antibiotics that I see listed here. If the CTA angiogram is unrevealing and is thought that this likely represents a benign congenital finding, I do recommend that she continue on aspirin 81 mg daily alone and not any other antiplatelet agent. She did have an echocardiogram that was normal. I also reviewed her lipid panel which demonstrated triglycerides of 133, cholesterol 151, LDL cholesterol 58.4, HDL cholesterol 66. In terms of ischemic risk factors, her risk factors are hypertension and hyperlipidemia. However, these do appear relatively well controlled. I would continue to optimize control of potential stroke risk factors, that is hypertension and hyperlipidemia. I did also discuss with her [employer] Law, which prohibits driving for six months following an episode of loss of consciousness. Advised regarding driving, heights, and swimming alone. Please feel free to contact me with any questions or concerns. Thank you, again, for this consultation. It is a privilege to participate in the care of this delightful patient.
--- NOTE | 2017-02-11 05:12 | NUR ---
NOC activity Pt has been pleasant and cooperative with care. Alert and oriented, no facial droop or tongue deviation. Noted stuttered speech at times. No deficits in upper and lower extremities strength. Denies chest pain, sob, n/v or abd discomfort. Pt has slept most of the night.
[2017-02-11 05:35] VITALS: BP 134/82; PULSE 56; RESP 18; O2SAT 97
[2017-02-11 05:38] VITALS: BP_SYST 103; BP_SYST 119; BP_DIAS 65; BP_DIAS 73; PULSE 64; PULSE 72
[2017-02-11] MEDS: 0.9% Sodium Chloride 1,000 ML IV SCH (05:45)
[2017-02-11] MEDS: Heparin 5,000 Unit/mL Inj SUBQ SCH ×2 (08:17)
[2017-02-11 08:38] VITALS: BP 145/82; PULSE 54; RESP 22; O2SAT 97
[2017-02-11 10:45] VITALS: PULSE 57
--- NOTE | 2017-02-11 10:46 | NUR ---
Social Work-initial assessment/ readiness for discharge: Data:See initial assessment. Pt is a 66 y/o female who was admitted on 02/09/17 for syncope per H&P. Pt's insurance is [employer] and PCP is Traci Fernandez MD at the [facility]. EMR Reviewed. Pt's readmission score is 1. SW met with pt and at bedside, SW role explained. Pt resides at home with her where she remains independent with ADLs. Pt drives and does not use any DME. Pt has no HH or SNF history. Pt has no continuous churn buttermaker care insurance or VA benefits. SW discussed DPOA/ advanced directive, pt and they have the paperwork they just need to completed it.PT/ST have cleared pt for home. Pt discussed in morning rounds, no concerns noted from MD detonator assembler regarding capacity for self care. Pt's to provide transport home. SW provided pt with discharge planning checklist and encouraged pt to call with any questions, phone number provided. No anticipated discharge needs. SW will continue to follow if needs arise. Assessment:pt who is independent at baseline. Plan:Pt to discharge home when medically stable via POV. No anticipated discharge needs. SW will continue to follow if needs arise. KARO Andersen Addendum: 02/11/17 at 1051 by RYAN CORBETT Amended: Links added.
--- NOTE | 2017-02-11 10:53 | DRSVH ---
PROCEDURE: CT ANGIO HEAD AND NECK (P) INDICATIONS: Syncope Left Vertebral Abnormality TECHNIQUE: Pre-contrast 4.5 mm thick sections acquired from the foramen magnum to the vertex. After the adminis tration of intravenous contrast, 1 mm thick sections acquired from the aortic arch through the [place] of Sal[place]. Post-contrast 4.5 mm thick sections then re-acquired from the foramen magnum to the vert ex. 3-dimensional wakpxup-vonczwsdw-goluvhlgxd (MIP) and/or volume rendering reformats were acquired of the central intracranial vasculature and neck separately. For radiation dose reduction, the foll owing was used: automated exposure control, adjustment of mA and/or kV according to patient size. COMPARISON: [facility], , MR STROKE PROTOCOL, 02/09/2017, 14:07. FINDINGS: Image quality: Excellent. BRAIN: The ventricular system and cortical sulci demonstrate atrophy, consistent for the patient's stated ag e. There are areas of hypodensity within the periventricular and subcortical white matter. There is no acute intra-or extra axial fluid collection. No acute hemorrhage, mass lesion or midline shift. Br ainstem is unremarkable. Globes are symmetrical. Sinuses are aerated. Osseous structures are intact. HEAD CT ANGIOGRAPHY: The posterior circulation demonstrates a right vertebral artery dominance. There is a diminutive appe arance of the distal left vertebral artery, although it does remain opacified. Basilar artery and pos terior cerebral arteries demonstrate no areas of hemodynamically significant stenosis, vascular occlu lindsay or aneurysmal dilation. Posterior communicating arteries are within normal limits. The anterior circulation, including the anterior and middle cerebral arteries, as well as internal ca rotid arteries demonstrates no areas of hemodynamically significant stenosis, vascular occlusion or a neurysmal dilation. NECK CT ANGIOGRAPHY: The origins of the left and right common, internal and external carotid arteries demonstrate no areas of hemodynamically significant stenosis, vascular occlusion or aneurysmal dilation. Origins of the l eft and right vertebral arteries demonstrate no areas of hemodynamically significant stenosis, vascul ar occlusion or aneurysmal dilation. Aortic arch demonstrates conventional anatomy. Limited, visualiz ed portions of the subclavian vasculature are unremarkable. IMPRESSION: 1. No acute intracranial process. 2. Mild atrophy and chronic microvascular ischemic changes. 3. Diminutive distal left vertebral artery. 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 4. No areas of hemodynamically significant stenosis, vascular occlusion or aneurysmal dilation within the anterior circulation. 5. No areas of hemodynamically significant stenosis, vascular occlusion or aneurysmal dilation within the posterior circulation. Dictated by: Felicia Pimentel M.D. on 02/11/2017 at 10:46 Approved by: Felicia Pimentel M.D. on 02/11/2017 at 10:52
[2017-02-11] MEDS ORDERED: ASPI81TA3 PO (13:46)
[2017-02-11] MEDS ORDERED: ATOR40TA69 PO (13:46)
--- NOTE | 2017-02-11 13:52 | PCM.DIMED ---
Discharge Instructions Date of Service Feb 11, 2017 Dates of Hospitalization Feb 09, 2017 at 12:39 Discharge Diagnosis Discharge Diagnosis Stroke/TIA resulting in aphasia without any signs on imaging Diet Discharge Diet: Heart Healthy Activity Discharge Activity: No restrictions Patient Instructions Follow-up plan Outpatient Speech therapy Follow-up with PCP in: 1 week (Holter monitor. ) Provider: Mark Lim MD Follow-up with Mid-level in: Other (In case stutter doesnt improve ) Tobin Vela MD Feb 11, 2017 13:52
--- NOTE | 2017-02-11 13:57 | PCM.DC.MED ---
Discharge Summary Date of Service Feb 11, 2017 Dates of Hospitalization Date of Hospital Admission Feb 09, 2017 at 12:39 Date of Discharge: Feb 11, 2017 Providers: Admitting Physician: Julisa Crum MD Primary Care Physician: Other,Physician Attending Physician: Julisa Crum MD Diagnosis at Time of Discharge Diagnosis at Time of Discharge Stroke/TIA resulting in aphasia without any signs on imaging Procedures XRay, CTs & MRIs CT BRAIN TPA IMPRESSION: No acute intracranial abnormalities. Findings were discussed with Dr. Aguilar at 1029 hrs on February 09, 2017. This study fulfills neurological imaging criteria for inclusion or exclusion of acute stroke therapies based on available published neurological imaging guidelines. Approved by: Musa Beatty M.D. on 02/09/2017 at 10:31 ECG 12 Lead EKG reviewed - NSR at 64 BPM, normal axis, no ST elevations/depressions, T wave inversions in Leads V1, V2 Brief History Ms. Angeline Arzate is a 66 year old lady with a history of recent ischemic colitis ( 2 weeks ago), hypertension, and ADD, and depression who presents to the ED via EMS following a syncopal episode with stoke like symptoms that occurred at 0940 this morning. Angeline reports feeling lightheaded just before her syncopal episode but doesn't recall anything until arriving to the ED. Her reports patient slouched over in the buddhist pew, was cold and clammy and unresponsive for several minutes. She also had an episode of large volume watery diarrhea. After regaining consciousness her and EMS reports generalized weakness and marked aphasia (broca's), that resolved en-route. She reports lightheadedness and "feeling funny", and watery diarrhea. She denies headache, vision change, Aura prior to syncope, fever, chills, nausea, vomiting , chest pain, shortness of breath, abdominal pain, constipation, hematochezia, hematuria, dysuria, limb weakness/numbness/tingling. Of note: This is the 2nd syncopal episode in 2 weeks. The first occurred while on the toilet and was told is was a vagal syncope. She has a 2 week history of diarrhea. It began as syncope and hematochezia 2 weeks ago. She was worked up in a hospital in [place], with a negative CT abdomen and resolution of syncope she was sent home (awaiting hospital records). She had a colonoscopy in [place] 1 week ago and was diagnosed ischemic colitis. She reports continued bouts of watery diarrhea daily. During the interview patient displayed worsening Broca's aphasia. Current medication list includes Adderall, Lisinopril, Citalopram and 2 recent antibiotics. Social: Patient has good social support. No ambulatory dysfunction. DNR/DNI. In the ED patients vitals were: T 36.5. HR - 66, RR - 12, BP - 122/64, 98 % RA. Labs within normal limits. EKG reviewed - NSR 64BPM, No st depressions/elevations, Non specific t wave inversions. CT head - No acute intracranial abnormalities. In the ED patient received Aspirin, and 1 L NS. TPA not indicated due to recent ischemic colitis, NIH 0 to 1. MR stroke protocol ordered. Echo complete ordered. Dr. Barriga with neurology consulted. Hospital Course Ms. Angeline Arzate is a 66 year old lady with a history of recent ischemic colitis and syncope (both 2 weeks ago), hypertension, and ADD, and depression who presents to the ED via EMS following a syncopal episode with stoke like symptoms that occurred at 0940 this morning. She has worsening Broca's aphasia. Stroke protocol ordered, and Neurology consulted. Aphasia (broca's) , Present on Admission, Resolving - TPA not indicated due to recent ischemic colitis, NIH 0 to 1. - other differentials include focal seizure, EEG negative as per dr. barirga - NIH in ED was 0 to 1. - CT, CTA, MRI, MRA without any acute pathologies - Lipid panel normal - continue aspirin and statin - stroke may be not visible at this time on imaging Acute Syncopal Episode, Present on Admission, Stable. - EKG reviewed - NSR at 64 bpm, no arrhythmia seen, no ST changes. - Labs all normal. - On Tele. : sinus rhythm - ECHO normal - will need outpatient holter Recent history of Ischemic colitis, watery diarrhea, present on admission. Resolving - no abdominal pain - monitor Chronic Conditions: Hypertension - restart home meds Depression - Continue home Citalopram ADD - Continue home Adderall Patient needs outpatient speech therapy, follow up with pcp for holter monitor Exam Vital Signs (Last) Date Time Temp Pulse Resp B/P Pulse Ox O2 Delivery O2 Flow Rate FiO2 02/11/17 10:45 57 02/11/17 08:38 36.7 22 145/82 97 Room Air Test 02/09/17 10:05 02/10/17 05:17 Prothrombin Time 10.8sec (8.1-12.5) Prothromb Time International Ratio 1.01ratio Activated Partial Thromboplast Time 23.6sec (22.8-33.0) Hemoglobin A1c 5.6% (4.8-5.6) Total Bilirubin 0.2mg/dL (0.0-1.2) Aspartate Amino Transf (AST/SGOT) 19U/L (0-50) Alanine Aminotransferase (ALT/SGPT) 18U/L (0-32) Alkaline Phosphatase 82U/L (25-165) Total Protein 7.1g/dL (6.4-8.4) Albumin 4.0g/dL (3.4-5.0) Triglycerides Level 133mg/dL (0-149) Cholesterol Level 151mg/dL (100-199) LDL Cholesterol, Calculated 58.400mg/dL (0-99) VLDL Cholesterol 26.600mg/dL HDL Cholesterol 66mg/dL (>39) Cholesterol/HDL Ratio 2.29 (0.0-4.4) White Blood Count 7.0th/mm3 (3.8-10.1) Red Blood Count 3.77mil/mm3 (3.90-5.20) Hemoglobin 11.2g/dL (12.0-15.6) Hematocrit 33.9% (35.0-46.0) Mean Corpuscular Volume 89.9fL (81-100) Mean Corpuscular Hemoglobin 29.7pg (27.0-35.0) Mean Corpuscular Hemoglobin Concent 33.0% (32.0-37.0) Red Cell Distribution Width 14.0% (12.3-15.4) Platelet Count 307bil/L (150-400) Neutrophils (%) (Auto) 63.6% (40-74) Lymphocytes (%) (Auto) 27.7% (14-46) Monocytes (%) (Auto) 6.6% (4-12) Eosinophils (%) (Auto) 1.6% (0-5) Basophils (%) (Auto) 0.4% (0-3) Erythrocyte Sedimentation Rate 22mm/hr (0-40) Sodium Level 143mEq/L (134-144) Potassium Level 4.1mEq/L (3.5-5.2) Chloride Level 111mEq/L (97-108) Carbon Dioxide Level 20mmol/L (18-29) Blood Urea Nitrogen 11mg/dL (8-27) Creatinine 0.65mg/dL (0.57-1.00) Estimat Glomerular Filtration Rate 131mL/min (>59) Glucose Level 94mg/dL (60-99) Calcium Level 8.2mg/dL (8.5-10.1) Troponin T 0.010ug/L (0.0-0.011) Vitamin B12 Level 370pg/mL (211-946) Folate 15.0ng/mL (>3.0) Discharge Medications Discharge Medications Aspirin Chew (Aspirin Chew) 81 Mg Chew 81 MG PO DAILY Prescribed by: JULISA CRUM MD Atorvastatin Calcium (Atorvastatin Calcium) 40 Mg Tablet 40 MG PO HS Prescribed by: JULISA CRUM MD Ciprofloxacin Hcl (Cipro (eq) 500 MG-6 Tab Prepack) 1 Pkg Pkg 500 MG PO BID ( Reported) Dextroamphetamine/Amphetamine ER (Dextroamphetamine/Amphetamine ER) 30 Mg Capsule 30 MG PO DAILY (Reported) Escitalopram Oxalate (Escitalopram Oxalate) 20 Mg Tablet 20 MG PO DAILY ( Reported) Hydrochlorothiazide (Hydrochlorothiazide) 12.5 Mg Capsule 12.5 MG PO DAILY ( Reported) Lisinopril (Lisinopril) 10 Mg Tablet 10 MG PO DAILY (Reported) Metronidazole (Metronidazole) 500 Mg Tablet 1,000 MG PO DAILY (Reported) Followup Plan Follow-up plan Speech therapy Discharge Diet: Heart Healthy Discharge Activity: No restrictions Follow-up with PCP in: 1 week (Holter monitor. ) Provider: Mark Barriga MD Follow-up with [facility] in: Other (In case stutter doesnt improve ) Time spent 35 mins Julisa Crum MD Feb 11, 2017 13:57
--- NOTE | 2017-02-11 14:29 | NUR ---
Social Work-discharge: Data:EMR reviewed. Pt is on day 2 of hospitalization for syncope per H&P. Pt is medically stable for discharge. Pt has been cleared by PT and ST recommending outpt services. MD to order outpt ST on discharge and pt can go where ever she would like. Pt and agreeable to plan. No discharge needs identified. All updated and agreeable to plan. Assessment:Pt who is independent at baseline. Plan:Pt to discharge home today via POV. No discharge needs identified. All updated and agreeable to plan. KARO Andersen
--- NOTE | 2017-02-11 14:45 | NUR ---
Discharge Patient given discharge orders. Patient IV removed fully intact and asymptomatic. Patient given hard copies of prescriptions. Patient given medication list with written times of when next dose is due. Patient given follow up instructions. Informational packets given as well as original Leave of absence form. Patient assisted to main entrance by staff. waiting at main entrance for patient.
== END 2017-02-11 14:52 | disposition home or self-care (01) ==
LOC: SED 10:08 → MPC 12:21
PROVIDERS: ADMIT Internal Medicine; ATTEND Internal Medicine
DX: R55 Syncope and collapse (principal); I10 Essential (primary) hypertension; K55.9 Vascular disorder of intestine, unspecified; I63.9 Cerebral infarction, unspecified; R47.01 Aphasia; F32.9 Major depressive disorder, single episode, unspecified; F98.8 Other specified behavioral and emotional disorders with onset usually occurring in childhood and adolescence; Z79.899 Other long term (current) drug therapy
CPT/HCPCS: 36415; 70450; 70496; 70498; 70549; 70553; 71010; 80048; 80053; 80061; 82607; 82746; 83036; 84484; 85025; 85610; 85651; 85730; 92610; 93005; 95816; 96360; 97161; 99291; A9585; C8929; J1644; J7030; Q9967